=== PATIENT | female | born 1955 | race Caucasian/White ===

== ENCOUNTER 2024-02-20 11:02 | Emergency (ER) | payer MEDICARE, BC, SELFPAY ==
[2024-02-20 11:14] VITALS: BP 149/106
--- NOTE | 2024-02-20 11:16 | ED.MUSCINJ ---
HPI-Injury
General
Chief Complaint: Fall
Source: patient
Exam Limitations: none
Time Seen by Provider: 02/20/24 11:51
History of Present Illness-Injury
Initial Injury comments:
68-year-old female presents complaining of left wrist and lower back pain after fall while playing pickle ball. She did not hit her head. She is not anticoagulated. She is ambulatory. No bowel or bladder dysfunction. No other complaints at this
time
ED Provider Triage
-
Patient seen by provider in Triage?: Seen in Triage
68-year-old female presents with left wrist pain and lower back pain following a fall today while playing pickle ball. She is not anticoagulated. She did not hit her head. She is ambulatory. Vital signs reviewed at triage. Recommended further
evaluation with x-rays of the left wrist and lumbar spine.
Phy Exam
Physical Exam
Physical Exam:
General: Well-appearing female no acute respiratory distress
HEENT: Normocephalic atraumatic
Heart: Regular rate and rhythm no murmurs
Lungs: Clear no wheeze
Musculoskeletal exam: The patient is tender over the midline of the lumbar spine. She is also tender over the dorsal aspect of the radial aspect of the left wrist
Vascular: 2+ radial pulse left hand
Neurologic: Alert and oriented good sensation to the legs
Injury Course
Orders/Labs/Results
Orders:
Orders
02/20/24 11:15
CR Lumbar Spine 2 Or 3 Views Urgent
Comment:
Reason For Exam: fall, back pain
CR Wrist - Left Min 3 Views Urgent
Comment:
Reason For Exam: fall, pain
MDM/Problems Addressed
Differential Diagnosis Includes:
Left wrist and lower back pain after a fall. Question fracture versus sprain. No neurologic compromise to the legs
I personally visualized x-rays of the left wrist which are negative for acute finding. X-rays of the lumbar spine show a 35% compression fracture of the L3.
Recommended avoidance of heavy lifting or twisting activities. Offered her pain medications however she declined and will treat with Tylenol and ibuprofen. I suspect a sprain of the wrist. Recommended splint however she states she has 1 at home.
Recommend follow-up with orthopedics.
*Critical Care Note
Total Time (30-74mins, 75-104mins- exclusive of procedures): Not Applicable
ED Attending Note
-
Portions of this chart may have been created with voice recognition software.� Occasional wrong word or��sound alike� substitutions may have occurred due to the inherent limitations of voice recognition software.
Discharge Plan
Departure
Patient Disposition: Home (Routine Discharge)
Date of Disposition: 02/20/24
Time of Disposition: 12:06
Patient with high blood pressure during this ER visit?: No
Discharge Problem:
Compression fracture
Instructions: Vertebral compression fracture
Referrals:
Bony Marie MD [Active] -
Activity Restrictions/Additional Instructions:
Avoid heavy lifting or twisting activities. You may use ibuprofen or Tylenol for pain. Follow-up with your doctor or orthopedics. Return if needed otherwise
Interventions
Interventions:
*Risk Screen - Suicide Last Done: 02/20/24 11:14
*General Assessment Last Done: 02/20/24 11:14
*Neglect/Abuse Screening Last Done: 02/20/24 11:14
*ED COVID-19 Vaccine History Last Done: 02/20/24 11:14
Discharge Date and Time
Print Language: MONEGASQUE
[2024-02-20 12:24] VITALS: BP 140/86
== END 2024-02-20 12:27 | disposition home or self-care (01) ==
LOC: EMR 11:02
PROVIDERS: EMERGENCY PHYSICIAN Student in an Organized Health Care Education/Training Program; FAMILY PHYSICIAN Family Medicine
DX: S32.038A Other fracture of third lumbar vertebra, initial encounter for closed fracture (principal); M25.532 Pain in left wrist; W19.XXXA Unspecified fall, initial encounter
CPT/HCPCS: 99284; 72100; 73110